=== PATIENT | female | born 1955 | race Caucasian/White ===

== ENCOUNTER → 2023-09-15 13:35 | Outpatient (REF) | payer MEDICARE, OTHER, SELFPAY | LOC: WDC 13:35 | PROVIDERS: ATTENDING PHYSICIAN Family Medicine | DX: Z12.31 Encounter for screening mammogram for malignant neoplasm of breast (principal) | CPT/HCPCS: 77063; 77067 ==

== ENCOUNTER → 2023-09-19 08:16 | Outpatient (REF) | payer MEDICARE, OTHER, SELFPAY | LOC: DHCBC/DCA 08:16 | PROVIDERS: ATTENDING PHYSICIAN Internal Medicine Cardiovascular Disease; FAMILY PHYSICIAN Family Medicine | DX: I25.10 Atherosclerotic heart disease of native coronary artery without angina pectoris (principal); R53.83 Other fatigue; R42 Dizziness and giddiness; R06.09 Other forms of dyspnea | CPT/HCPCS: 78452; 93017; A9500; J2785 ==

== ENCOUNTER → 2023-09-29 11:04 | Outpatient (REF) | payer MEDICARE, OTHER, SELFPAY | LOC: RAD 11:04 | PROVIDERS: ATTENDING PHYSICIAN Internal Medicine Rheumatology; FAMILY PHYSICIAN Family Medicine | DX: M81.0 Age-related osteoporosis without current pathological fracture (principal) | CPT/HCPCS: 77080 ==

== ENCOUNTER → 2023-10-11 10:56 | Outpatient (REF) | payer MEDICARE, OTHER, SELFPAY | LOC: HWRAD 10:56 | PROVIDERS: ATTENDING PHYSICIAN Physician Assistant Medical; FAMILY PHYSICIAN Family Medicine | DX: R09.89 Other specified symptoms and signs involving the circulatory and respiratory systems (principal) | CPT/HCPCS: 93880 ==

== ENCOUNTER 2024-05-19 14:16 | Emergency (ER) | payer MEDICARE, OTHER, SELFPAY ==
[2024-05-19 14:21] VITALS: BP 149/83
[2024-05-19 14:45] LABS: % Eosinophils 2.3 % (0-6); % Immature Granulocytes 0.2 % (0-0.5); % Lymphocytes 44.7 % (20.5-51.1); % Monocytes 7.7 % (1.7-9.3); % Neutrophils 44.1 % (42.2-75.2); Absolute Basophils 0.1 10^3/uL (0-0.2); Absolute Eosinophils 0.1 10^3/uL (0-0.7); Absolute Lymphocytes 2.8 10^3/uL (1.2-3.4); Absolute Monocytes 0.5 10^3/uL (0.1-0.6); Absolute Neutrophils 2.7 10^3/uL (1.4-6.5); Hematocrit 40.2 % (37.0-47.0); Hemoglobin 13.3 g/dL (12.0-16.0); Mean Corp Hgb Conc. 33.1 g/dL (33.0-37.0); Mean Corpuscular Volume 96.6 fL (81.0-99.0); Mean Platelet Volume 10.4 fL (7.4-10.4); Nucleated Red Blood Cells % 0 %; Platelet Count 205 10^3/uL (130-400); Red Blood Cell Count 4.16 10^6/uL (4.20-5.40); Red Cell Dist. Width 12.6 % (11.5-14.5); White Blood Cell Count 6.2 10^3/uL (4.8-10.8)
[2024-05-19 15:02] LABS: ALT (SGPT) 19 U/L (0-35); AST (SGOT) 27 U/L (14-36); Albumin 4.5 g/dl (3.5-5.0); Alkaline Phosphatase 53 U/L (38-126); Blood Urea Nitrogen 16 mg/dl (7-17); Calcium 9.3 mg/dl (8.4-10.2); Carbon Dioxide 32 mmol/L (22-30); Chloride 101 mmol/L (98-107); Glucose 76 mg/dl (70-99); Potassium 4.4 mmol/L (3.5-5.1); Sodium 139 mmol/L (135-145); Total Protein 6.8 g/dl (6.3-8.2); eGFR > 60.00
[2024-05-19 16:29] VITALS: BP 122/68
[2024-05-19 16:46] VITALS: BP 129/69
[2024-05-19 17:00] VITALS: BP 128/75
[2024-05-19 17:32] LABS: Troponin I < 0.012 ng/ml
--- NOTE | 2024-05-19 18:08 | ED.GENMED ---
History of Present Illness
General
Chief Complaint: Breathing Problem
Source: patient and family
Exam Limitations: none
Time Seen by Provider: 05/19/24 17:00
Nursing documentation reviewed up to this point in time: agreed with
History of Present Illness
History of Present Illness:
69-year-old female presenting to the emergency department after episode at home where she felt fatigued tired somewhat sweaty at home and was not responding to her for about 30 seconds then came to. Otherwise asymptomatic at this point no
additional concerns at this time no symptoms no numbness or weakness.
Past History
Past History
ED Past Medical History: GERD, Hypercholesterolemia, Other (Constipation, ulcers, diverticulosis, diverticulitis) and Other (He)
ED Past Surgical History: Orthopedic and Other (Endoscopy, colonoscopy)
Social History
Tobacco: Non-smoker
Alcohol: None
Personal:
Living: with family
Review of Systems
Review of Systems
Allergies reviewed?: Yes
All Other Systems: ROS reviewed and negative except as documented in HPI and ROS
Phy Exam
Physical Exam
Physical Exam:
GENERAL: Alert , in no apparent distress
EYE: pupils equal and reactive
NECK: Supple, no significant adenopathy.
ENT: o/p clr, mmm.
CARDIAC: Regular rate and rhythm .
LUNGS: Clear breath sounds bilaterally, no acute respiratory distress, no wheezes/rales/rhonchi
ABDOMEN: Soft, without focal tenderness, no r/g, no cvat
NEUROLOGICAL: Alert and oriented, no focal neuro deficits 5-5 upper and lower extremity strength normal sensation with palpating bilaterally normal finger-nose [id number] no pronator drift. Walking with steady gait
SKIN: Warm and dry, skin intact.
MUSCULOSKELETAL: No edema, well perfused.
PSYCH: Normal and appropriate interaction.
Scores
Heart Failure Risk
Heart Failure Risk Score: Not Applicable
Course
Orders/Labs/Results
Orders:
Orders
05/19/24 14:26
Electrocardiogram (*1) Urgent
Reason for Study: Fatigue / Weakness
05/19/24 14:27
EKG- Treatment ONCE
05/19/24 14:37
CMP [Comprehensive Metabolic Panel] Urgent
Complete Blood Count/With Diff Urgent
05/19/24 16:52
Troponin I Urgent
05/19/24 17:01
Chest [CR Chest - 2 Views ] Urgent
Comment:
Reason For Exam: sob
05/19/24 18:01
Urinalysis Reflex To Culture Urgent
Abnormal Lab Results
05/19/24
14:37
RBC 4.16 L 10^6/uL
(4.20-5.40)
MCH 32.0 H pg
(27.0-31.0)
Carbon Dioxide 32 H mmol/L
(22-30)
05/19/24 14:37
05/19/24 14:37
Vital Signs
Initial and Last Documented VS:
Initial Vital Signs
Temp Pulse Resp BP Pulse Ox
98.4 F 66 16 149/83 98
05/19/24 14:21 05/19/24 14:21 05/19/24 14:21 05/19/24 14:21 05/19/24 14:21
Last Documented Vital Signs
Temp Pulse Resp BP Pulse Ox
98.4 F 60 22 129/69 96
05/19/24 14:21 05/19/24 16:50 05/19/24 16:50 05/19/24 16:46 05/19/24 16:50
MDM/Problems Addressed
MDM/Problems Addressed:
69-year-old female presenting to the emergency department after an episode where she did not respond to her for about 30 seconds. She felt some lightheadedness some sweatiness prior. Otherwise she is asymptomatic at this point vital signs
normal. Normal on the monitor. Labs unremarkable troponin negative EKG normal chest x-ray normal. Patient could have had a syncopal episode though it is hard to tell. No history of seizures no neurologic symptoms. Overnight observation was
offered to the patient she elected to follow-up closely as an outpatient. Otherwise return precautions given.
*Critical Care Note
Total Time (30-74mins, 75-104mins- exclusive of procedures): Not Applicable
ED Attending Note
-
Portions of this chart may have been created with voice recognition software.� Occasional wrong word or��sound alike� substitutions may have occurred due to the inherent limitations of voice recognition software.
Discharge Plan
Departure
Patient Disposition: Home (Routine Discharge)
Date of Disposition: 05/19/24
Time of Disposition: 18:10
Patient with high blood pressure during this ER visit?: No
Condition: Good
Covid-19: Not Applicable
Discharge Problem:
Loss of consciousness
Instructions: Near Fainting (DC)
Prescriptions:
No Action
tramadol 50 MG tablet
50 mg PO BID PRN (Reason: PAin)
atenolol 25 MG tablet
25 mg PO DAILY
aspirin [Adult Aspirin Regimen] 81 MG tablet,delayed release (DR/EC)
81 mg PO DAILY
cholecalciferol (vitamin D3) [Vitamin D3] 25 MCG capsule
1,000 unit PO DAILY
duloxetine 60 MG capsule,delayed release(DR/EC)
60 mg PO DAILY
atorvastatin 40 MG tablet
40 mg PO QPM Qty: 90 10RF
Referrals:
Camilla Martinez MD [Family Provider] -
Activity Restrictions/Additional Instructions:
Here your workup was reassuring. You had a negative troponin level and normal EKG. Your labs did not show any emergent findings. Please follow-up closely with the primary care doctor in the next 1 to 2 weeks for reassessment. Immediately return
to the emergency department for any worsening, new or concerning symptoms.
Interventions
Interventions:
*Risk Screen - Suicide Last Done: 05/19/24 14:21
*General Assessment Last Done: 05/19/24 14:21
*Neglect/Abuse Screening Last Done: 05/19/24 16:50
ED- Fall Risk Assessment Last Done: 05/19/24 16:50
*ED COVID-19 Vaccine History Last Done: 05/19/24 14:21
ED- Cardiac Assessment Last Done: 05/19/24 16:50
ED- Pulmonary Assessment Last Done: 05/19/24 16:50
Discharge Date and Time
Print Language: [place]IZ[place]
[2024-05-19 18:29] LABS: Urine Albumin Negative (Neg - Trace); Urine Bilirubin Negative (Negative); Urine Character Clear (Clear); Urine Color Straw; Urine Glucose Negative (Negative); Urine Ketone Negative (Negative); Urine Leukocyte Negative (Negative); Urine Nitrite Negative (Negative); Urine Occult Blood Negative (Negative); Urine Urobilinogen Negative (Neg - 1+)
== END 2024-05-19 18:30 | disposition home or self-care (01) ==
LOC: EMR 14:16
PROVIDERS: Emergency Medicine; Physician Assistant; EMERGENCY PHYSICIAN Emergency Medicine; FAMILY PHYSICIAN Family Medicine
DX: R55 Syncope and collapse (principal); E78.00 Pure hypercholesterolemia, unspecified; K21.9 Gastro-esophageal reflux disease without esophagitis
CPT/HCPCS: 99285; 71046; 80053; 81003; 84484; 85025; 93005

== ENCOUNTER → 2024-06-08 10:19 | Outpatient (REF) | payer MEDICARE, OTHER, SELFPAY | LOC: RAD 10:19 | PROVIDERS: ATTENDING PHYSICIAN Family Medicine | DX: R40.4 Transient alteration of awareness (principal); R41.82 Altered mental status, unspecified | CPT/HCPCS: 70450 ==

== ENCOUNTER → 2024-09-17 13:06 | Outpatient (REF) | payer MEDICARE, OTHER, SELFPAY | LOC: WDC 13:06 | PROVIDERS: ATTENDING PHYSICIAN Family Medicine | DX: Z12.31 Encounter for screening mammogram for malignant neoplasm of breast (principal) | CPT/HCPCS: 77063; 77067 ==